=== PATIENT | female | born 1990 ===

== ENCOUNTER 2018-09-30 13:32 | Emergency (ER) | payer OTHER ==
[2018-09-30 14:54] VITALS: BP 97/61; PULSE 89; RESP 16; TEMP 98.6; O2SAT 100
--- NOTE | 2018-09-30 16:08 | ED PDOC ---
HPI: Abdomen Time Seen by Provider: 09/30/18 15:42 Chief Complaint (Nursing): Abdominal Pain Chief Complaint (Provider): Abdominal Pain History Per: Patient History/Exam Limitations: no limitations Onset/Duration Of Symptoms: Days (today) Outside of [place] travel?: No Current Symptoms Are (Timing): Still Present Quality Of Discomfort: Cramping, "Pain" Associated Symptoms: Chills, Vomiting. denies: Fever, Diarrhea Additional Complaint(s): 27 year old female with no past medical history presents to the ED with vomiting and diffuse, cramping abdominal pain onset today around 6:30 am. This morning patient suddenly had x10 episodes of nonbilious, nonbloody vomting and an episode of loose stool, but no diarrhea, black or bloody stool. She reports chills, but no fever. She has one sick contact, her daughter who has been sick since Sunday. Patient denies any recent travel. PMD: Dr. Delgadillo Past Medical History Reviewed: Historical Data, Nursing Documentation, Vital Signs Vital Signs: Last Vital Signs Temp 98.6 F 09/30/18 14:53 Pulse 89 09/30/18 14:53 Resp 16 09/30/18 14:53 BP 97/61 L 09/30/18 14:53 Pulse Ox 100 09/30/18 14:53 Primary Care Provider: Non [facility] Provider, - Medical History PMH: No Chronic Diseases - Surgical History Surgical History: No Surg Hx - Family History Family History: States: Diabetes, Hypertension, Other Other Family History: asthma - Social History Current smoker - smoking cessation education provided: No Ex-Smoker (has not smoked in the last 12 months): No - Home Medications Home Medications: Ambulatory Orders Medication Instructions Recorded Dicyclomine [Bentyl] 20 mg PO QID PRN #20 tab 09/30/18 Ondansetron ODT [Zofran ODT] 2 odt PO Q6 PRN #20 odt 09/30/18 - Allergies Allergies/Adverse Reactions: Allergies Allergy/AdvReac Type Severity Reaction Status Date / Time No Known Allergies Allergy Verified 09/30/18 14:54 Review of Systems ROS Statement: Except As Marked, All Systems Reviewed And Found Negative Constitutional: Positive for: Chills. Negative for: Fever Gastrointestinal: Positive for: Vomiting, Abdominal Pain Physical Exam - Reviewed Nursing Documentation Reviewed: Yes Vital Signs Reviewed: Yes - Physical Exam Appears: Positive for: Non-toxic, No Acute Distress (tired appearing) Head Exam: Positive for: ATRAUMATIC, NORMOCEPHALIC Skin: Positive for: Warm, Dry Eye Exam: Positive for: EOMI, PERRL ENT: Negative for: Pharyngeal Erythema, Tonsillar Exudate Neck: Positive for: Painless ROM, Supple Cardiovascular/Chest: Positive for: Regular Rate, Rhythm. Negative for: Murmur Respiratory: Positive for: Normal Breath Sounds. Negative for: Respiratory Distress Gastrointestinal/Abdominal: Positive for: Soft, Tenderness (mild diffuse palpation, unlocalizable), Other (negative Minerva sign, negative McBurneys point tenderness). Negative for: Mass, Distended, Guarding, Rebound Back: Positive for: Normal Inspection. Negative for: Decreased ROM Extremity: Positive for: Normal ROM. Negative for: Deformity Lymphatic: Negative for: Adenopathy Neurological/Psych: Positive for: Awake, Alert. Negative for: Motor/Sensory Deficits - ECG O2 Sat by Pulse Oximetry: 100 (RA) Pulse Ox Interpretation: Normal Medical Decision Making Medical Decision Making: Time: 154 Impression: abdominal pain and vomiting; likely viral syndrome Plan: --u preg --u dip --Zofran 1900 Pt tolerated PO in ER Udip c/w dehydration, but no infection. Advised to continue slow fluid oral hydration and f/u pmd. Scribe Attestation: Documented by Jing Brandon, acting as a scribe for Ирина England MD. Provider Scribe Attestation: All medical record entries made by the Scribe were at my direction and personally dictated by me. I have reviewed the chart and agree that the record accurately reflects my personal performance of the history, physical exam, medical decision making, and the department course for this patient. I have also personally directed, reviewed, and agree with the discharge instructions and disposition. Disposition - Clinical Impression Clinical Impression: Abdominal pain with vomiting - Disposition Referrals: Shaik Mtz MD [Medical Doctor] - 10/01/18 Disposition: Routine/Home Disposition Time: 18:00 Condition: STABLE Additional Instructions: BLAND DIET WITH PLENTY OF FLUIDS FOLLOWUP WITH YOUR DOCTOR IN 24 HOURS Prescriptions: Dicyclomine [Bentyl] 20 mg PO QID PRN #20 tab PRN Reason: abdominal pain Ondansetron ODT [Zofran ODT] 2 odt PO Q6 PRN #20 odt PRN Reason: Nausea/Vomiting Instructions: Viral Gastroenteritis, Adult (DC) Forms: [facility] ED School/Work Excuse
== END 2018-09-30 18:46 | disposition home or self-care (01) ==
LOC: H.ER 13:32
DX: R10.2 Pelvic and perineal pain (principal); R11.10 Vomiting, unspecified